=== PATIENT | female | born 1980 | race Two or more races ===

== ENCOUNTER 2016-06-14 15:53 | Emergency (ER) | payer OTHER ==
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
[2016-06-14 14:52] LABS: URINE SOURCE CLEAN CATCH
[2016-06-14 14:57] LABS: URINE APPEARANCE CLEAR; URINE BILIRUBIN NEG (NEG); URINE BLOOD NEG (NEG); URINE COLOR YELLOW; URINE GLUCOSE NEG (NEG); URINE KETONE NEG (NEG); URINE LEUKOCYTE ESTERASE NEG (NEG); URINE NITRATE NEG (NEG); URINE PROTEIN NEG (NEG); URINE SPECIFIC GRAVITY 1.002 (1.003-1.035); URINE UROBILINOGEN 0.2 MG/DL (NEG)
[2016-06-14 15:02] LABS: CULTURE INDICATED? NO
== END 2016-06-14 17:47 | disposition home or self-care (01) ==
LOC: CFTX 15:53
PROVIDERS: Nurse Practitioner
DX: S39.012A Strain of muscle, fascia and tendon of lower back, initial encounter (principal); S29.012A Strain of muscle and tendon of back wall of thorax, initial encounter; M50.30 Other cervical disc degeneration, unspecified cervical region; Z88.0 Allergy status to penicillin; R11.0 Nausea; R19.7 Diarrhea, unspecified; V43.52XA Car driver injured in collision with other type car in traffic accident, initial encounter
CPT/HCPCS: 70450; 72072; 72125; 74176; 81003; 84703; 96372; 99284; J1885